=== PATIENT | female | born 2005 | race Two or more races ===

== ENCOUNTER 2024-06-11 04:42 | Inpatient (IN) | payer OTHER ==
[2024-06-11] VITALS (7 sets, daily range): BP systolic 129–140; BP diastolic 62–84
[~2024-06-11] VITALS: Ht 162.6 cm; Wt 75.7 kg
[2024-06-11] MEDS ORDERED: PRENATAL TABLE1 EAC1 PO (05:11)
[2024-06-11] MEDS ORDERED: RINGERS SOLUTION,LACTATED 1,000 ML IV SCH (05:15)
[2024-06-11] MEDS ORDERED: AMPICILLIN SODIUM 2,000 MG VIAL IV ONE (05:15)
[2024-06-11 06:17] LABS: HEMATOCRIT 32.7 % (36.0-45.00); HEMOGLOBIN 10.9 g/dL (12.0-15.00); MEAN CELL VOLUME 79.1 fL (80.00-100.00); MEAN CORPUSCULAR HEMOGLOBIN 26.4 pg (27.00-32.0); MEAN CORPUSCULAR HGB CONC 33.4 g/dl (32.0-36.0); PLATELET COUNT 245 K/uL (150-450); RED BLOOD COUNT 4.14 M/uL (4.00-6.00); RED CELL DISTRIBUTION WIDTH 14.6 % (11.5-14.5)
[2024-06-11 06:38] LABS: INR < 0.93; PARTIAL THROMBOPLASTIN TIME 26.5 SECONDS (22.0-34.0); PROTHROMBIN TIME 9.8 SECONDS (9.0-11.5)
[2024-06-11 07:24] LABS: URINE BACTERIA 2872.7 uL (0.0-1933); URINE EPITHELIAL CELLS 58.2 uL (0.0-38.8); URINE RBC 2.7 uL (0.0-20.8); URINE WBC 185.2 uL (0.0-23.2)
[2024-06-11 07:25] LABS: PH,URINE 6.5 (5.0-8.0); URINE APPEARANCE Clear; URINE BILIRRUBIN Negative (NEGATIVE); URINE BLOOD Moderate; URINE COLOR Yellow; URINE GLUCOSE Negative (NEGATIVE); URINE KETONE Negative (NEGATIVE); URINE LEUKOCYTE Small; URINE NITRATE Negative; URINE PROTEIN Negative (NEGATIVE); URINE UROBILINOGEN 0.2 E.U./dl
[2024-06-11 07:39] LABS: URINE YEAST NEGATIVE /hpf
[2024-06-11] MEDS ORDERED: AMPICILLIN SODIUM 1,000 MG VIAL IV SCH (09:00)
[2024-06-11] MEDS ORDERED: OXYTOCIN 20 UNITS/500ML RL PIGGYBAG IV SCH (11:15)
[2024-06-11] MEDS ORDERED: MEPERIDINE HCL/PF 50 MG/ML VIAL IV STA (15:33)
[2024-06-11] MEDS ORDERED: PROMETHAZINE HCL 25 MG/ML AMPUL IV STA (15:34)
[2024-06-11] MEDS ORDERED: PROMETHAZINE HCL 25 MG/ML AMPUL IV ONE (21:00)
[2024-06-11] MEDS ORDERED: MEPERIDINE HCL/PF 25 MG/ML VIAL IV ONE (21:00)
[2024-06-12] MEDS ORDERED: KETOROLAC TROMETHAMINE 60 MG VIAL IM STA (01:12)
[2024-06-12] MEDS ORDERED: OXYTOCIN 1,000 ML IV SCH (01:15)
[2024-06-12] MEDS ORDERED: CHLORHEXIDINE GLUCONATE 120 ML BOTTLE TOP NR (01:15)
[2024-06-12] MEDS ORDERED: RINGERS SOLUTION,LACTATED 1,000 ML IV SCH (01:15)
[2024-06-12] MEDS ORDERED: MEPERIDINE HCL/PF 50 MG/ML VIAL IM PRN (01:15)
[2024-06-12] MEDS ORDERED: PROMETHAZINE HCL 25 MG/ML AMPUL IM PRN (01:15)
[2024-06-12] MEDS ORDERED: CEFOXITIN SODIUM 2,000 MG in DEXTROSE 5 % IN WATER 100 ML IV STA (01:18)
[2024-06-12] MEDS ORDERED: OXYTOCIN 10 UNITS/ML VIAL IV ONE (02:15)
[2024-06-12] MEDS ORDERED: ERYTHROMYCIN BASE OPHT 1GM EACH TUBE OP ONE (02:15)
[2024-06-12] MEDS ORDERED: MORPHINE SULFATE 4 MG/ML VIAL IV ONE ×2 (02:30→03:00)
[2024-06-12 03:31] VITALS: BP 119/67
[2024-06-12 06:27] LABS: HEMATOCRIT 29.6 % (36.0-45.00); HEMOGLOBIN 9.8 g/dL (12.0-15.00); MEAN CELL VOLUME 77.4 fL (80.00-100.00); MEAN CORPUSCULAR HEMOGLOBIN 25.5 pg (27.00-32.0); PLATELET COUNT 241 K/uL (150-450); RED BLOOD COUNT 3.83 M/uL (4.00-6.00); RED CELL DISTRIBUTION WIDTH 14.8 % (11.5-14.5)
[2024-06-12] MEDS ORDERED: ACETAMINOPHEN 500 MG GEL..CAP PO PRN (08:30)
[2024-06-12] MEDS ORDERED: OxyCODONE HCL/APAP UD (PERCOCET) PO PRN (09:00)
[2024-06-12 10:19] VITALS: BP 114/67; O2SAT 100
[2024-06-12 14:30] VITALS: BP 112/70; O2SAT 100
[2024-06-12 16:18] VITALS: BP 111/72
[2024-06-13 01:16] VITALS: BP 107/59
[2024-06-13 08:00] VITALS: BP 1112/72
[2024-06-13 16:00] VITALS: BP 112/75
[2024-06-14 02:03] VITALS: BP 108/65
[2024-06-14 08:00] VITALS: BP 109/71
[2024-06-14] MEDS ORDERED: IBUPROFEN800 MG PO (09:36)
== END 2024-06-14 14:50 | disposition home or self-care (01) | DRG 788 ==
LOC: LDR 04:42 → OB/GYN 06-12 01:41
PROVIDERS: ADMIT Obstetrics & Gynecology; ATTEND Obstetrics & Gynecology
PROC: 4A1HXCZ Monitoring of Products of Conception, Cardiac Rate, External Approach (ICD-10-PCS; 2024-06-11)
PROC: 10D00Z1 Extraction of Products of Conception, Low, Open Approach (ICD-10-PCS; principal; 2024-06-12)
DX: O82 Encounter for cesarean delivery without indication (principal); O62.1 Secondary uterine inertia; Z3A.39 39 weeks gestation of pregnancy; Z37.0 Single live birth; Z20.822 Contact with and (suspected) exposure to COVID-19